=== PATIENT | female | born 1980 | race Caucasian/White ===

== ENCOUNTER → 2016-09-27 | Outpatient (REF) | payer OTHER ==
[2016-09-27 18:59] LABS: FREE T4 0.78 NG/DL (0.76-1.46)
== END ==
LOC: M LABDRAW1 16:37
PROVIDERS: ATTEND Internal Medicine Endocrinology, Diabetes & Metabolism
DX: O99.281 Endocrine, nutritional and metabolic diseases complicating pregnancy, first trimester (principal)

== ENCOUNTER → 2016-10-04 | Outpatient (REF) | payer OTHER ==
[2016-10-04 18:10] LABS: BASO % 0.2 % (0.0-1.0); EOS # 0.1 K/mm3 (0.0-0.50); LARGE UNSTAINED CELL # 0.1 K/mm3 (0.0-0.4); LARGE UNSTAINED CELL % 1.3 % (0.0-4.0); LYMPH # 1.7 K/mm3 (1.5-4.5); LYMPH % 26.6 % (24.0-44.0); MEAN CORPUSCULAR HGB CONC 32.9 g/dl (32.0-36.5); MEAN CORPUSCULAR VOLUME 94.3 fl (80.0-96.0); MONO # 0.3 K/mm3 (0.0-0.8); MONO % 4.4 % (0.0-5.0); NEUTROPHILS # 4.3 K/mm3 (1.8-7.7); NEUTROPHILS % 66.6 % (36.0-66.0); PLATELET COUNT, AUTOMATED 302 k/mm3 (150-450); RED CELL DISTRIBUTION WIDTH 11.8 % (11.5-14.5); WHITE BLOOD COUNT 6.4 K/mm3 (4.0-10.0)
[2016-10-05 09:48] LABS: CONTROL LINE INT CTR LINE PRESENT; HIV SCRN NEGATIVE (NEGATIVE); HIV SCRN1 NEGATIVE (NEGATIVE)
== END ==
LOC: M LABDRAW1 16:27
PROVIDERS: ATTEND Obstetrics & Gynecology
DX: Z34.81 Encounter for supervision of other normal pregnancy, first trimester (principal)

== ENCOUNTER → 2016-11-15 | Outpatient (REF) | payer OTHER ==
[2016-11-15 13:16] LABS: FREE T4 0.93 NG/DL (0.76-1.46)
== END ==
LOC: M LABDRAW1 11:30
PROVIDERS: ATTEND Internal Medicine Endocrinology, Diabetes & Metabolism
DX: O99.281 Endocrine, nutritional and metabolic diseases complicating pregnancy, first trimester (principal)

== ENCOUNTER → 2016-11-15 | Outpatient (REF) | payer OTHER ==
[2016-11-15 13:19] LABS: MEAN CORPUSCULAR HEMOGLOBIN 31.7 pg (27.0-33.0); MEAN CORPUSCULAR HGB CONC 33.5 g/dl (32.0-36.5); MEAN CORPUSCULAR VOLUME 94.6 fl (80.0-96.0); RED CELL DISTRIBUTION WIDTH 12.9 % (11.5-14.5); WHITE BLOOD COUNT 6.3 K/mm3 (4.0-10.0)
[2016-11-15 13:45] LABS: ALBUMIN 3.4 GM/DL (3.2-5.2); ALBUMIN/GLOBULIN RATIO 1.13 (1.00-1.93); ALKALINE PHOSPHATASE 51 U/L (45-117); ALT/SGPT 16 U/L (12-78); ANION GAP 10 MEQ/L (8-16); AST/SGOT 20 U/L (15-37); BILIRUBIN,TOTAL 0.5 MG/DL (0.2-1.0); BLOOD UREA NITROGEN 15 MG/DL (7-18); CALCIUM LEVEL 8.6 MG/DL (8.5-10.1); CARBON DIOXIDE LEVEL 24 MEQ/L (21-32); CHLORIDE LEVEL 105 MEQ/L (98-107); CHOLESTEROL LEVEL 235 MG/DL (<200); CREATININE FOR GFR 0.74 MG/DL (0.55-1.02); GLOMERULAR FILTRATION RATE > 60.0 (>60); GLUCOSE, FASTING 74 MG/DL (70-105); SODIUM LEVEL 139 MEQ/L (136-145); TOTAL PROTEIN 6.4 GM/DL (6.4-8.2); TRIGLYCERIDES LEVEL 128 MG/DL (<150)
== END ==
LOC: M LABDRAW1 11:34
DX: E05.00 Thyrotoxicosis with diffuse goiter without thyrotoxic crisis or storm (principal)

== ENCOUNTER 2016-12-16 09:18 | Emergency (ER) | payer OTHER ==
[~2016-12-16] VITALS: Ht 172.7 cm; Wt 74.8 kg
[2016-12-16] MEDS ORDERED: PRENTAB55 PO (09:36)
[2016-12-16] MEDS ORDERED: FOLI1TAB2 PO (09:36)
--- NOTE | 2016-12-16 10:29 | REP ---
RIGHT SHOULDER, TWO VIEWS: 12/16/2016. Clinical history: Dislocation. Findings: There were no prior studies. There are three metallic anchors overlying the glenoid from prior shoulder surgery. There is anterior inferior dislocation of the humeral head. There is no visible fracture. No other finding. Signed by Casey Torres MD 12/16/2016 03:01 P
[2016-12-16] MEDS ORDERED: LIDOCAINE 1% MDV 20ML VIAL IM ONE (10:45)
[2016-12-16 12:07] VITALS: BP 121/77
--- NOTE | 2016-12-16 13:09 | REP ---
SINGLE VIEW RIGHT SHOULDER: Single postreduction view of the right shoulder is performed. The humeral head is relocated within the glenoid fossa indicating successful reduction. No definite fracture is seen of the visualized osseous structures. Signed by Triston Jacobson MD 12/16/2016 03:28 P
--- NOTE | 2016-12-19 15:02 | ER ---
DATE OF ER CONSULTATION: 12/16/2016 REASON FOR CONSULTATION: Recurrent irreducible dislocation of right shoulder. HISTORY OF PRESENT ILLNESS: She is a 35-year-old right hand dominant female who has undergone a prior open anterior stabilization procedure from a Lacrosse related injury by Dr. Anaya many years ago, which failed and she had recurrent instabilities, was cared for arthroscopically by a Dr. Llanes in [place] about 8 or 9 years ago and after one year her shoulder began dislocating once again and it has come out innumerable times and she normally self reduces . This morning this happened once again at home and she was unable to reduce this one by herself, so she has presented to emergency room; Dr. Binta Jacobson, the emergency room physician called me because she is 23 weeks and did not feel it appropriate to give IV medications for sedation that she normally would and asked if I would help this get this reduced. Otherwise she is quite healthy. PAST MEDICAL HISTORY: Reviewed and amended to the chart. She works as an OR nurse up in our office. PHYSICAL EXAMINATION: When I examined her, she is an alert and oriented, pleasant female. She has obvious anterior-inferior dislocation of the right shoulder. She is guarding her right arm and holding her elbow in a flexed position. Her distal neurovascular exam is grossly unremarkable. No focal motor deficits noted. She has a healed anterior incision as well as smaller arthroscopic scars about that right shoulder, but it is not significantly swollen. There is no ecchymosis. Radiographs show an anterior inferior dislocation with three Mitek suture anchors in the glenoid. IMPRESSION: Recurrent dislocation right shoulder anterior and inferiorly. I would recommend closed reduction. She would like to try that as well. PROCEDURE: Initial attempt at reducing the shoulder by the Per Soria technique where I gently extended her elbow and her arm and brought her arm fully forward, elevated up the ear, but she had too much spasm and discomfort to allow that, thus I sterilely prepped her shoulder and gave a 10 mL injection of 1% lidocaine from an anterior approach and that also did not provide enough numbing medicine, so I applied some also posteriorly and then we tried that maneuver once again and this time we were successful getting the shoulder reduced. Post reduction radiographs confirm that the shoulder was now reduced and she was given a sling and then she plans just to be careful with this arm. She knows how to deal with this and she does not want to have any further surgical procedures for the time being. Clearly we should not do so while she is . She stated that may be in a couple of years, she will maybe consider having her shoulder stabilized and likely she would require a Laterjet procedure in the future. So she is going to followup in our office where I can see her once again over the next several days. TONY
== END 2016-12-16 12:07 | disposition home or self-care (01) ==
LOC: M ED 09:50
DX: O99.89 Other specified diseases and conditions complicating pregnancy, childbirth and the puerperium (principal); M24.411 Recurrent dislocation, right shoulder; Z3A.23 23 weeks gestation of pregnancy

== ENCOUNTER → 2017-02-14 | Outpatient (REF) | payer OTHER ==
[~2017-02-14] MED LIST: FOLI1TAB2 PO; PRENTAB55 PO
[2017-02-14 16:49] LABS: FREE T4 0.98 NG/DL (0.76-1.46)
== END ==
LOC: M LABDRAW1 15:41
PROVIDERS: ATTEND Internal Medicine Endocrinology, Diabetes & Metabolism
DX: O99.282 Endocrine, nutritional and metabolic diseases complicating pregnancy, second trimester (principal)

== ENCOUNTER → 2017-07-25 | Outpatient (REF) | payer OTHER ==
[~2017-07-25] MED LIST changes: -FOLI1TAB2 PO; +FOLI1TAB4 PO
[2017-07-25 15:23] LABS: FREE T4 0.71 NG/DL (0.76-1.46)
== END ==
LOC: M LABDRAW1 13:59
PROVIDERS: ATTEND Internal Medicine Endocrinology, Diabetes & Metabolism
DX: O99.282 Endocrine, nutritional and metabolic diseases complicating pregnancy, second trimester (principal)

== ENCOUNTER → 2017-10-25 | Outpatient (REF) | payer OTHER ==
[2017-10-25 16:03] LABS: FREE T4 0.81 NG/DL (0.76-1.46)
== END ==
LOC: M LABDRAW1 13:11
DX: E07.89 Other specified disorders of thyroid (principal)

== ENCOUNTER → 2018-01-09 | Outpatient (REF) | payer OTHER ==
[2018-01-09 16:30] LABS: FREE T4 0.74 NG/DL (0.76-1.46)
== END ==
LOC: M LABDRAW1 15:31
DX: E07.89 Other specified disorders of thyroid (principal)

== ENCOUNTER → 2018-09-11 | Outpatient (REF) | payer OTHER ==
[~2018-09-11] MED LIST changes: +FOLI1TAB11 PO; -FOLI1TAB4 PO
[2018-09-11 10:06] LABS: BASO # 0.1 10^3/uL (0.0-0.2); EOS # 0.1 10^3/uL (0.0-0.50); EOS % 2.4 % (0.0-3.0); HEMATOCRIT 39.1 % (36.0-47.0); LYMPH # 2.1 10^3/uL (1.5-4.5); LYMPH % 34.6 % (24.0-44.0); MEAN CORPUSCULAR HEMOGLOBIN 31.9 pg (27.0-33.0); MEAN CORPUSCULAR HGB CONC 33.2 g/dl (32.0-36.5); MEAN CORPUSCULAR VOLUME 95.8 fl (80.0-96.0); MONO # 0.6 10^3/uL (0.0-0.8); MONO % 9.4 % (0.0-5.0); NEUTROPHILS # 3.1 10^3/uL (1.8-7.7); NEUTROPHILS % 52.4 % (36.0-66.0); PLATELET COUNT, AUTOMATED 338 10^3/uL (150-450); RED BLOOD COUNT 4.08 10^6/uL (4.00-5.40)
[2018-09-11 10:19] LABS: ALBUMIN 4.3 GM/DL (3.2-5.2); ALT/SGPT 20 U/L (12-78); BILIRUBIN,TOTAL 0.6 MG/DL (0.2-1.0); BLOOD UREA NITROGEN 25 MG/DL (7-18); CALCIUM LEVEL 8.8 MG/DL (8.5-10.1); CARBON DIOXIDE LEVEL 26 MEQ/L (21-32); CHLORIDE LEVEL 104 MEQ/L (98-107); CHOLESTEROL LEVEL 209 MG/DL (<200); CHOLESTEROL RISK RATIO 2.402 (<5); CREATININE FOR GFR 0.93 MG/DL (0.55-1.30); GLOMERULAR FILTRATION RATE > 60.0 (>60); GLUCOSE, FASTING 90 MG/DL (70-100); HDL CHOLESTEROL 87 MG/DL (>40); LDL CHOLESTEROL 100 MG/DL (<100); NON-HDL-C 122 MG/DL; POTASSIUM SERUM 4.1 MEQ/L (3.5-5.1); SODIUM LEVEL 136 MEQ/L (136-145); TOTAL 25(OH) VITAMIN D 24.8 NG/ML (30.0-100.0); TOTAL PROTEIN 7.2 GM/DL (6.4-8.2); TRIGLYCERIDES LEVEL 108 MG/DL (<150)
== END ==
LOC: M LABDRAW1 09:26
PROVIDERS: ATTEND Nurse Practitioner Family
DX: F41.1 Generalized anxiety disorder (principal); M24.20 Disorder of ligament, unspecified site; E05.00 Thyrotoxicosis with diffuse goiter without thyrotoxic crisis or storm

== ENCOUNTER → 2019-06-19 | Outpatient (REF) | payer OTHER ==
[2019-06-19 14:23] LABS: BASO # 0.1 10^3/uL (0.0-0.2); BASO % 0.9 % (0.0-1.0); EOS # 0.1 10^3/uL (0.0-0.5); EOS % 0.9 % (0.0-3.0); HEMATOCRIT 39.6 % (36.0-47.0); HEMOGLOBIN 13.2 g/dl (12.0-15.5); LYMPH # 1.7 10^3/uL (1.5-5.0); LYMPH % 29.5 % (24.0-44.0); MEAN CORPUSCULAR HEMOGLOBIN 32.8 pg (27.0-33.0); MEAN CORPUSCULAR HGB CONC 33.3 g/dl (32.0-36.5); MEAN CORPUSCULAR VOLUME 98.3 fl (80.0-96.0); MONO # 0.4 10^3/uL (0.0-0.8); MONO % 6.9 % (0.0-5.0); NEUTROPHILS # 3.6 10^3/uL (1.5-8.5); NEUTROPHILS % 61.6 % (36.0-66.0); PLATELET COUNT, AUTOMATED 340 10^3/uL (150-450); RED BLOOD COUNT 4.03 10^6/uL (4.00-5.40); WHITE BLOOD COUNT 5.8 10^3/uL (4.0-10.0)
[2019-06-19 14:40] LABS: HEMOGLOBIN A1c 5.4 %
[2019-06-19 14:41] LABS: ALBUMIN 4.3 GM/DL (3.2-5.2); ALT/SGPT 17 U/L (12-78); BILIRUBIN,TOTAL 0.5 MG/DL (0.2-1.0); BLOOD UREA NITROGEN 19 MG/DL (7-18); CALCIUM LEVEL 9.3 MG/DL (8.5-10.1); CARBON DIOXIDE LEVEL 27 MEQ/L (21-32); CHLORIDE LEVEL 103 MEQ/L (98-107); CHOLESTEROL LEVEL 192 MG/DL (<200); CREATININE FOR GFR 1.04 MG/DL (0.55-1.30); GLOMERULAR FILTRATION RATE > 60.0 (>60); GLUCOSE, FASTING 64 MG/DL (70-100); HDL CHOLESTEROL 81 MG/DL (>40); LDL CHOLESTEROL 96 MG/DL (<100); NON-HDL-C 111 MG/DL; POTASSIUM SERUM 4.8 MEQ/L (3.5-5.1); SODIUM LEVEL 136 MEQ/L (136-145); TOTAL 25(OH) VITAMIN D 31.2 NG/ML (30.0-100.0); TRIGLYCERIDES LEVEL 76 MG/DL (<150)
== END ==
LOC: M LABDRAW1 10:44
PROVIDERS: ATTEND Nurse Practitioner Family
DX: E05.00 Thyrotoxicosis with diffuse goiter without thyrotoxic crisis or storm (principal); F41.1 Generalized anxiety disorder

== ENCOUNTER → 2019-06-19 | Outpatient (REF) | payer OTHER ==
[2019-06-19 14:42] LABS: FREE T4 0.73 NG/DL (0.76-1.46); THYROID STIMULATING HORMONE 3.08 uIU/ML (0.358-3.740)
== END ==
LOC: M LABDRAW1 10:43
PROVIDERS: ATTEND Internal Medicine Endocrinology, Diabetes & Metabolism
DX: E07.89 Other specified disorders of thyroid (principal)

== ENCOUNTER → 2020-10-15 | Outpatient (CLI) | payer OTHER ==
[~2020-10-15] MED LIST changes: +TAMO20TA8
--- NOTE | 2020-10-15 10:46 | RADONC.CN ---
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 She is s/p BL mastectomies and right ALND on 05/04/20 showing 2/13 LN+. She completed AC+T chemotherapy at [facility] in September 2020. She has completed oncoplastic implant-based reconstruction. She is seen today for consideration of PMRT. Diagnosis/Treatment History Oncologic History She felt a right upper our breast mass in March 2020, mammogram revealed no less than 7 lesions. She had an MRI which also revealed a left breast lesion. Biopsy of the right breast showed IDC ER/CO+ HER2- grade 2, biopsy of the left breast was negative. She was found to have a CHEK2 mutation. Oncotype was 26. She underwent BL mastectomies and right ALND on 05/04/20, final pathology showed [id number] 2/13 LN+, margins negative. Left breast was benign. She received adjuvant AC+T chemotherapy at [facility] completed in September 2020. She had final implant based reconstruction end of September 2020. Interval History Missy feels well overall. Still with some soreness in the chest on an off post reconstruction. Has diminished sensation in the BL chest overall as well as in the right axilla. She notes no RUE swelling or pain. She has some neuropathy in her left foot which is resolving. Her appetite and energy levels are good. 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 Past Medical History: Hypothyroid Breast history: OCP 13 years first @ 32 Menses @ 12 LMP 06/21/20 (post menopausal @ 39) No HRT/fertility tx Past Surgical History: Appendectomy Shoulder surgery x 3 in 2008 Family History: No family cancer history Social History: Never smoker Drinks 2 alcoholic beverages per week Allergies / Meds Allergies: Coded Allergies: erythromycin base (Verified Allergy, Unknown, HIVES A BABY, 09/08/20) Home Meds Reported Medications Tamoxifen Citrate (Tamoxifen Citrate) 20 Mg Tablet 10/15/20 Folic Acid (Folic Acid) 1 Mg Tab, 1 MG PO DAILY, TAB 12/16/16 [id number]/Iron Fum/Folic/Docusate ( 19 Tablet) 1 Tab Tab, 1 TAB PO DAILY, TAB 12/16/16 Review of Systems Constitutional: Denies: Chills, Fever, Weight Loss Eyes: Denies: Pain, Vision change HEENT: Denies: Head Aches Skin: Denies: Rash Pulmonary: Denies: Dyspnea, Cough Cardiovascular: Denies: Chest Pain, Palpitations Breast: Reports: Breast Pain or Tenderness Gastrointestinal: Denies: Nausea, Vomiting, Abdominal Pain Genitourinary: Denies: Dysuria, Frequency Hematologic: Denies: Bruising, Bleeding Excessively Endocrine: Denies: Polydipsia, Cold Intolerance Musculoskeletal: Denies: Neck pain, Back pain Neurological: Denies: Weakness, Numbness Psych: Reports: Mood Normal Vital Signs Ht 68" Wt 156 lbs BMI 24 T 97 P 65 RR 18 BP 122/71 O2 100% Pain 2 Fatigue 1 General Exam: Positive: Alert, Cooperative; Negative: No Acute Distress Eye Exam: Positive: PERRLA, EOMI ENT EXAM: Positive: Atraumatic, Mucous membr. moist/pink Neck Exam: Positive: Supple; Negative: Thyromegaly, Lymphadenopathy Chest Exam: Positive: Clear to auscultation, Normal air movement Heart Exam: Positive: Rate Normal, Regular Rhythm Breast Exam: Positive: Symmetric Bilaterally, Lumps or Masses, Skin Changes (BL bruising ); Negative: Nipple Retraction, Nipple Discharge, Other Breast Findings (Axillary and recon incisions well healed. No RUE swelling. BL ROM intact) Abdomen Exam: Positive: Soft Extremity Exam: Negative: Edema Skin Exam: Positive: Nl turgor and temperature Neuro Exam: Positive: Normal Gait, Normal Speech, Cranial Nerves 3-12 NL Psych Exam: Positive: Mental status NL Diagnostic and Laboratory Diagnostic Review Radiologic images, relevant labs and pathology reports were personally reviewed and discussed with Ms. Storm. Assessment and Plan Impression Ms. 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 She is s/p BL mastectomies and right ALND on 05/04/20 showing 2/13 LN+. She completed AC+T chemotherapy at [facility] in September 2020. She has completed oncoplastic implant-based reconstruction. She is seen today for consideration of PMRT. Stage Stage IA IDC right upper outer breast [id number] ER/CO+ HER2- Grade 2, / LN+ Performance Status ECOG 0 Plan We had an extensive discussion with Ms. Storm regarding the diagnosis at hand and available therapeutic options. She had a large burden of multicentric disease in the right breast as well as positive axillary nodes. She is also a CHEK2 mutation carrier. She has appropriate colonoscopy screening follow up for this. I recommend PMRT to the right chest wall/reconstructed breast and comprehensive mac RT, given her young age and pathology. I will give 50.4 Gy in 28 fractions with VMAT in order to cover the mac targets adequately and spare underlying normal tissues. We discussed that as her treatment is to the right side that the left side and heart will effectively be spared without any additional special techniques (eg DIBH). With respect to her reconstruction she is healing well. I see no reason to delay the start of RT. She has no discernible lymphedema or ROM impairments. We discussed the logistics of receiving radiation therapy in detail including the need for a 1-time planning session this can occur as soon as next week. We reviewed the side effects of RT including fatigue, skin reaction, late fibrosis, lymphedema and implant failure. She is already using cetaphil on her skin and can continue this product throughout radiation. She has a prescription for tamoxifen, I explained to her that generally we prefer to wait until after RT to initiate hormonal therapy (so as not to compound side effects) but that if she felt strongly about starting it now I have no objection. After discussing the risks, benefits and alternatives to radiation therapy, Ms. Storm was amenable to pursuing radiotherapy. All questions were answered to the patient's satisfaction. We instructed the patient that if there were any questions,concerns or changes in clinical status in the interim to contact us. Recommendations PMRT with comprehensive mac coverage 50.4 Gy in 28 fractions with VMAT as discussed above Simulation in the coming week Total time of (40) minutes was spent preparing for the visit (3), obtaining HPI (4), examining the patient (3), reviewing diagnostic tests (9), discussing m anagement options (15), coordinating care (0), and writing this note (6). MANUEL OLMOS MD Oct 15, 2020 10:46
== END ==
LOC: M ONCR 09:06
PROVIDERS: ATTEND General Practice
DX: C50.911 Malignant neoplasm of unspecified site of right female breast (principal); Z90.13 Acquired absence of bilateral breasts and nipples; Z92.21 Personal history of antineoplastic chemotherapy; Z98.82 Breast implant status

== ENCOUNTER 2020-10-30 15:39 | Outpatient (RCR) | payer OTHER | END 2020-11-01 | LOC: M ONCR 15:39 | PROVIDERS: ATTEND General Practice | DX: C50.411 Malignant neoplasm of upper-outer quadrant of right female breast (principal) ==

== ENCOUNTER → 2020-12-02 | Outpatient (RCR) | payer OTHER | LOC: M ONCR 11-02 13:55 | PROVIDERS: ATTEND General Practice | DX: C50.411 Malignant neoplasm of upper-outer quadrant of right female breast (principal) ==

== ENCOUNTER 2020-12-07 15:39 | Outpatient (RCR) | payer OTHER | END 2021-01-01 | LOC: M ONCR 15:39 | PROVIDERS: ATTEND General Practice | DX: C50.411 Malignant neoplasm of upper-outer quadrant of right female breast (principal) ==

== ENCOUNTER → 2021-06-09 | Outpatient (CLI) | payer OTHER | LOC: M ONCR 10:17 | PROVIDERS: ATTEND General Practice | DX: C50.411 Malignant neoplasm of upper-outer quadrant of right female breast (principal); Z92.3 Personal history of irradiation ==

== ENCOUNTER → 2022-01-24 | Outpatient (CLI) | payer OTHER ==
[~2022-01-24] MED LIST changes: +[UNRECOGNIZED DRUG - CODE] IM
== END ==
LOC: M ONCR 09:05
PROVIDERS: ATTEND General Practice
DX: C50.411 Malignant neoplasm of upper-outer quadrant of right female breast (principal); Z88.1 Allergy status to other antibiotic agents; Z88.8 Allergy status to other drugs, medicaments and biological substances; Z92.21 Personal history of antineoplastic chemotherapy; Z92.3 Personal history of irradiation; Z79.811 Long term (current) use of aromatase inhibitors